=== PATIENT | female | born 1970 | race African-American/Black ===

== ENCOUNTER → 2021-12-24 | Day surgery (SDC) | payer OTHER ==
[~2021-12-24] VITALS: Ht 167.6 cm; Wt 122.5 kg
[~2021-12-24] MED LIST: CELEBREX **OUT100 MG PO; COZAAR50 MG PO
== END | disposition home or self-care (01) ==
LOC: FAS 10:25
DX: C18.7 Malignant neoplasm of sigmoid colon (principal); D12.5 Benign neoplasm of sigmoid colon; C50.919 Malignant neoplasm of unspecified site of unspecified female breast; M19.90 Unspecified osteoarthritis, unspecified site; I10 Essential (primary) hypertension; E66.01 Morbid (severe) obesity due to excess calories; Z92.3 Personal history of irradiation; Z80.0 Family history of malignant neoplasm of digestive organs
CPT/HCPCS: J1610; J2704; J7120